=== PATIENT | male | born 1975 | race Two or more races ===

== ENCOUNTER → 2023-02-24 | Outpatient (CLI) | payer OTHER, MEDICARE ==
[2023-02-24 14:03] LABS: HCT 44.5 % (39.0-53.0); HGB 14.5 gm/dL (13.0-17.5); MCH 27.3 pg (25.0-35.0); MCHC 32.5 g/dL (31.0-37.0); MCV 83.8 fL (80.0-100.0); Mean Platelet Volume 9.1; Platelet Count 245 k/uL (150-450); RBC 5.31 m/uL (4.30-5.90); RDW 14.2 % (11.5-15.5); WBC 10.5 k/uL (3.8-10.6)
[2023-02-24 14:11] LABS: Partial Thromboplastin Time 27.2 sec (22.0-30.0); Prothrombin Time 11.1 sec (10.0-12.5)
[2023-02-24 14:29] LABS: ALT 51 U/L (4-49); AST 39 U/L (17-59); African American GFR (CKD) >90 (>60 ml/min/1.73 sqM); Albumin 4.1 g/dL (3.5-5.0); Alkaline Phosphatase 64 U/L (38-126); Anion Gap 10 mmol/L; Blood Urea Nitrogen 10 mg/dL (9-20); Calcium 9.3 mg/dL (8.4-10.2); Carbon Dioxide 28 mmol/L (22-30); Chloride 101 mmol/L (98-107); Glucose 98 mg/dL (74-99); Non-African American GFR(CKD) >90 (>60 ml/min/1.73 sqM); Potassium 4.6 mmol/L (3.5-5.1); Sodium 139 mmol/L (137-145); Total Bilirubin 0.4 mg/dL (0.2-1.3); Total Protein 7.7 g/dL (6.3-8.2)
== END | disposition home or self-care (01) ==
LOC: LABPAT 12:10
PROVIDERS: ATTEND Orthopaedic Surgery
DX: Z01.812 Encounter for preprocedural laboratory examination (principal); M17.11 Unilateral primary osteoarthritis, right knee; Z22.322 Carrier or suspected carrier of Methicillin resistant Staphylococcus aureus; I49.8 Other specified cardiac arrhythmias
CPT/HCPCS: 80053; 83036; 85027; 85610; 85730; 93005

== ENCOUNTER → 2023-02-26 | Outpatient (CLI) | payer OTHER, MEDICARE | END | disposition home or self-care (01) | LOC: LABPAT 11:16 | PROVIDERS: ATTEND Orthopaedic Surgery | DX: Z01.812 Encounter for preprocedural laboratory examination (principal); M17.11 Unilateral primary osteoarthritis, right knee; Z22.322 Carrier or suspected carrier of Methicillin resistant Staphylococcus aureus | CPT/HCPCS: 87070 ==

== ENCOUNTER → 2023-03-23 | Outpatient (CLI) | payer MEDICARE ==
--- NOTE | 2023-03-26 09:31 | CT ---
EXAMINATION TYPE: CT right knee - [facility] Protocol DATE OF EXAM: 03/23/2023 COMPARISON: HISTORY: pre op planning CT DLP: 1512 mGycm Automated exposure control for dose reduction was used. Contrast: None Technique: [facility] presurgical planning of the right knee. Images were obtained in the axial plane at 2 mm thick sections through the hip and ankle and 1 mm thick sections through the knee. Reconstructed i mages in the coronal and sagittal plane are reviewed. FINDINGS: Hip: There is narrowing of the right hip joint space. Selective joint space narrowing is present. No acute osseous abnormality of the hips is evident. Fecal bolus is noted at the rectum. Knee: There is prior ACL repair. Medial and lateral femoral condylar spurring is present. Medial tibi al plateau and smaller lateral tibial plateau spurring is present. There is narrowing of the lateral compartment joint space with loss of the medial compartment joint space. Mild patellofemoral joint sp peng narrowing is present. Ankle: No acute fracture is evident. Joint space appears preserved. IMPRESSION: 1. CT for [facility] knee presurgical planning.
== END | disposition home or self-care (01) ==
LOC: RADCTMAIN 12:22
PROVIDERS: ATTEND Orthopaedic Surgery
DX: Z01.818 Encounter for other preprocedural examination (principal); M17.11 Unilateral primary osteoarthritis, right knee

== ENCOUNTER → 2023-03-23 | Outpatient (CLI) | payer MEDICARE, OTHER ==
[2023-03-23 13:24] LABS: Partial Thromboplastin Time 25.7 sec (22.0-30.0); Prothrombin Time 11.1 sec (10.0-12.5)
[2023-03-23 15:53] LABS: HCT 44.1 % (39.6-50.0); MCH 26.5 pg (27.0-32.0); MCHC 31.7 g/dL (32.0-37.0); MCV 83.5 FL (80.0-97.0); NRBC Per 100 WBC 0 X 10*3/uL (0.00-0.01); Platelet Count 270 X 10*3/uL (140-440); RBC 5.28 X 10*6/uL (4.40-5.60)
[2023-03-23 17:48] LABS: ALT 56 U/L (10-49); AST 46 U/L (14-35); Albumin 4.1 g/dL (3.8-4.9); Albumin/Globulin Ratio 1.21 Ratio (1.60-3.17); Alkaline Phosphatase 58 U/L (41-126); Blood Urea Nitrogen 11.3 mg/dL (9.0-27.0); Calcium 9.8 mg/dL (8.7-10.3); Carbon Dioxide 28.2 mmol/L (21.6-31.8); Chloride 101 mmol/L (96-109); Globulin 3.4 g/dL (1.6-3.3); Glucose 97 mg/dL (70-110); Potassium 4.7 mmol/L (3.5-5.5); Sodium 139 mmol/L (135-145); Total Bilirubin 0.4 mg/dL (0.3-1.2); Total Protein 7.5 g/dL (6.2-8.2)
== END | disposition home or self-care (01) ==
LOC: LABPAT 11:57
PROVIDERS: ATTEND Orthopaedic Surgery
DX: Z01.812 Encounter for preprocedural laboratory examination (principal); Z22.322 Carrier or suspected carrier of Methicillin resistant Staphylococcus aureus; M17.11 Unilateral primary osteoarthritis, right knee; E11.9 Type 2 diabetes mellitus without complications
CPT/HCPCS: 36415; 80053; 83036; 85027; 85610; 85730; 87070

== ENCOUNTER 2023-04-07 06:50 | Day surgery (SDC) | payer MEDICARE, OTHER ==
[2023-02-25 09:31] VITALS: BMI 50.8
[~2023-04-07 06:50] MED LIST: ONDANSETRON 4 MG/2 ML VIAL IVP PRN; TRANEXAMIC 1,000 MG/100ML-NACL 1,000 MG in SALINE 1 100ML.BAG IV PRN; TRANEXAMIC 1,000 MG/100ML-NACL 1,000 MG in SALINE 1 100ML.BAG IVPB PRN
[2023-04-07] MEDS ORDERED: LIDOCAINE 1% (10MG/ML) FOR IV START INTRADERMA PRN (07:42)
[2023-04-07] MEDS ORDERED: TEMAZEPAM 15 MG CAP PO PRN (08:43)
[2023-04-07] MEDS ORDERED: NALOXONE 0.4 MG/ML 1 ML VIAL IV PRN (08:43)
[2023-04-07] MEDS ORDERED: NA PHOS,M-B/NA PHOS,DI-BA 133 ML ENEMA RECTAL PRN (08:43)
[2023-04-07] MEDS ORDERED: MAGNESIUM HYDROXIDE 2,400 MG/30 ML CUP PO PRN (08:43)
[2023-04-07] MEDS ORDERED: traMADol 50 MG TAB PO PRN (08:43)
[2023-04-07] MEDS ORDERED: bisacodyL 10 MG SUPP RECTAL PRN (08:43)
[2023-04-07] MEDS ORDERED: ONDANSETRON 4 MG/2 ML VIAL IVP PRN (08:43)
[2023-04-07] MEDS ORDERED: HYDROmorphone 0.5 MG/0.5 ML SYRINGE IVP PRN ×2 (08:43)
[2023-04-07] MEDS ORDERED: ACETAMINOPHEN TAB 325 MG TAB PO PRN (08:43)
[2023-04-07] MEDS: LACTATED RINGERS 1,000 ML IV SCH ×2 (08:46→16:24)
[2023-04-07] MEDS ORDERED: HYDROcodone/APAP 7.5-325MG 1 EACH TAB PO PRN (08:47)
[2023-04-07] MEDS: ACETAMINOPHEN TAB 500 MG TAB PO PRN (08:55)
[2023-04-07] MEDS: DOCUSATE 100 MG CAP PO PRN (08:56)
[2023-04-07] MEDS: oxyCODONE ER 10 MG TAB.ER.12H PO PRN (08:56)
[2023-04-07] MEDS: DEXAMETHASONE SOD PHOSPHATE 10 MG/ML 1 ML VIAL IV PRN (09:05)
[2023-04-07] MEDS: KETOROLAC 15 MG/ML 1 ML VIAL IVP PRN (09:05)
[2023-04-07] MEDS: FAMOTIDINE 20 MG/2 ML VIAL IVP PRN (09:05)
[2023-04-07 09:08] LABS: Glucose,Whole Blood 106 mg/dL (70-110)
[2023-04-07] MEDS: MIDAZOLAM 2 MG/2 ML VIAL IV PRN (09:11)
[2023-04-07] MEDS: ceFAZolin 3 GM in SODIUM CHLORIDE 0.9% 100 ML IVPB PRN (09:45)
[2023-04-07] MEDS ORDERED: TRANEXAMIC 1,000 MG/100ML-NACL PREMIX BAG ONE (09:45)
[2023-04-07] MEDS ORDERED: NEOSTIGMINE 1 MG/ML 10 ML VIAL ONE (09:45)
[2023-04-07] MEDS ORDERED: PROPOFOL 10 MG/ML 20 ML VIAL IV ONE (09:45)
[2023-04-07] MEDS ORDERED: ROCURONIUM 10 MG/ML (5 ML VIAL) IV ONE (09:45)
[2023-04-07] MEDS ORDERED: ROPIVACAINE 5 MG/ML 30 ML VIAL ONE (09:45)
[2023-04-07] MEDS ORDERED: LIDOCAINE 1% INJ 10MG/ML (20 ML MDV) ONE (09:45)
[2023-04-07] MEDS ORDERED: GLYCOPYRROLATE 0.2 MG/ML 2 ML VIAL ONE (09:45)
[2023-04-07] MEDS ORDERED: DEXAMETHASONE SOD PHOSPHATE 4 MG/ML 1 ML VIAL ONE (09:45)
[2023-04-07] MEDS ORDERED: fentaNYL (PF) 50 MCG/ML 2 ML AMP ONE (09:45)
[2023-04-07] MEDS ORDERED: MIDAZOLAM 2 MG/2 ML VIAL ONE (09:45)
[2023-04-07] MEDS ORDERED: SUCCINYLCHOLINE CHLORIDE 200 MG/10 ML VIAL IV ONE (09:45)
[2023-04-07] MEDS: ROPIVACAINE/EPI/CLONIDINE/KET 50 ML SYRINGE MISCELLANE PRN (10:23)
[2023-04-07] MEDS: LACTATED RINGERS 1,000 ML IV ONE ×2 (11:08→14:05)
[2023-04-07] MEDS: VANCOMYCIN 1,000 MG VIAL MISCELLANE ONE (11:53)
--- NOTE | 2023-04-07 12:47 | P.OP ---
Date of Procedure: 04/07/23 Preoperative Diagnosis: 1. Severe right knee osteoarthritis 2. Prior ACL reconstruction, right knee 3. BMI 51 Postoperative Diagnosis: Same Procedure(s) Performed: 1. Right total knee arthroplasty 2. Computer assisted musculoskeletal navigation using CT/MRI images Modifier 22 for increased procedural complexity: Justification: This operation required significantly more time, work, and procedural complexity than a standard primary or revision total joint arthroplasty. Specifically the prior traumatic changes and or surgical procedure left a significantly altered surgical field with resultant scar tissue, adhesions, and altered anatomy that r equired a longer and more difficult and complex surgical dissection. This patient required: Extensile exposure requiring meticulous and extensive debridement due to prior failed surgery and contractures Technically demanding removal of prior hardware Significantly prolonged operative time Increased BMI (51) and challenging body habitus All of the above result in a physically and mentally challenging operative procedure that in my professional opinion necessitates a 30% increase above standard the schedule Implants: 1. Alissa Triathlon CR Femur Size #7 2. [place] [employer] [place] Tibial Base Size #7 with a 12x50 stem 3. Alissa Triathlon CS poly Size #10 4. Alissa Triathlon all poly patella, Size #35 Anesthesia: PRABHJOT, regional Surgeon: Mynor Frederick Pipe Buffer #1: Justin Brothers Estimated Blood Loss (ml): 200 IV fluids (ml): 200 Pathology: none sent Condition: stable Disposition: PACU Indications for Procedure: The patient is a very pleasant 47-year-old male with a medical history significant for having a remote ACL tear treated with an ACL reconstruction. He went on to develop severe posttraumatic arthritis that failed nonsurgical treatment. The patient presented to see me and I initially recommended nonsurgical treatment with attempts at weight loss given his elevated BMI. The patient attempted weight loss but continued to have incapacitating knee pain due to his arthritis. The patient specifically requests proceeding with a total knee replacement. I was very obey with the patient about his elevated risk due to his weight. We discussed his elevated risk for infection, delayed wound healing and/or mechanical failure requiring revision. We discussed the ramifications of this up to and including a knee fusion and possibly even amputation. The patient understood and still requested proceeding with a total knee replacement. Since he is otherwise healthy and is unable to work due to hi s knee pain I agreed proceeding with a total knee replacement again acknowledging his elevated risk. An ample opportunity discuss and was made aware of the potential serious complications that are possible following the knee replacement. I met with the patient preoperatively in the office setting and discussed treatment of their symptomatic knee arthritis. They failed a long course of nonsurgical treatment and elected to proceed with an elective total knee replacement. I discussed the potential risks and complications at length and gave them ample time to ask questions. Risks discussed included: risks from anesthesia, superficial site surgical infection, acute and/or chronic periprosthetic joint infection, delayed wound healing, drainage, wound necrosis, instability, stiffness, stiffness requiring manipulation and/or revision surgery, damage to local blood vessels or nerves, aseptic loosening of the implants, extensor mechanism issues including disruption, patellar maltracking, avascular necrosis etc., continued or worsened knee pain, generalized dissatisfaction with surgical outcome, need for revision surgery, an inability to regain preinjury level of function, DVT, PE, other medical complications, and possibly loss of life or limb. The patient voiced their understanding that while these are the most common complications other less common complications are possible. They provided both their verbal and written consent to go forward with surgery. Operative Findings: Severe tricompartmental knee osteoarthritis. At the beginning of the procedure the metallic interference screw was removed since the Germán plan showed it would impinge on the tibial baseplate. Description of Procedure: The patient was identified in preoperative holding and the correct operative extremity was verified and marked with a marker. I reviewed the consent form with the patient at length. All of their questions were answered. The patient was given a block by anesthesia. They were then brought back to the operating room. They were transferred onto the operating room table where a general anesthetic, preoperative antibiotics, and tranexamic acid were administered by anesthesia. A tourniquet was applied to the proximal aspect of the operative extremity. The contralateral extremity was padded under the heel and secured to the operating room table with a nonsterile blue towel and tape. The ipsilateral arm was carefully draped across the patient's chest and secured with a pillow and foam. A post was applied over the lateral aspect of the ipsilateral thigh and a bolster was placed under the ipsilateral foot. I verified that the operative extremity was stable and the knee was flexed to 90. The operative extremity was then placed in a leg vines, nonsterile drapes were applied, and the extremity was prepped and draped sterilely in the standard sterile fashion. Prior to starting surgery timeout was performed identifying the correct patient, operative extremity, and procedure. The leg was then elevated, exsanguinated with an Esmarch bandage, and the tourniquet was inflated. An anterior midline incision was made sharply with a scalpel. Once I had dissected deep to the superficial fascial layer medial and lateral flaps were elevated. A medial parapatellar arthrotomy was created. Upon opening the knee joint there were diffuse arthritic changes in all 3 compartments. The patient's body habitus exposure and completion of the procedure was difficult. The anterior horn of the medial meniscus were sharply released and a medial release was performed around the posterior medial corner of the knee to facilitate retractor placement. At this point I found the interference screw in the tibia which was easily palpated. It was carefully exposed with a small amount of bone removed just enough to expose the screw. A dental pick was used to remove bone from within the screw and using an appropriately sized screwdriver the screw was removed. The fat pad was excised with electrocautery. The patella was found to be severely arthritic and a provisional cut was made with a sagittal saw to facilitate mobilization of the extensor mechanism during the procedure. Remnants of the ACL and PCL were then excised from the notch. 4 mm pins were then placed within the incision in the medial distal femur and proximal tibia. Arrays were applied to the pins and I verified they were completely tightened. The knee was then registered with the Sensbeat robot and manipulations in implant position were made to balance the knee and opitmize implant position. Using the Germán robotic saw all cuts were made in accordance with our plan. After all bony fragments had been removed the cuts were verified with the planar probe. The tibia was then subluxed forward and sized. The knee was brought into flexion and a lamina sugar sampler was placed to allow removal of the meniscal remnants both medially and laterally as well as posterior osteophytes. Local anesthetic was then infiltrated around the joint capsule. Trial implants were then placed within the knee. Range of motion and collateral ligament tension was then evaluated. Adjustments in implant size and position were then made accordingly. Once the knee was felt to be appropriately balanced the Germán pins were removed. The patella was then recut, sized, and punched. A trial patellar button was then placed. With the trial components in place, the patella tracked midline. The femur was then drilled and the trial component removed. The trial tibial co mponent was then appropriately rotated, pinned, and prepared for the keel. Wax was applied over the site of the interference screw. All trial components were then removed from the knee. The knee was thoroughly irrigated with pulsatile lavage. Cement was prepared via vacuum mixing in a bowl on the back table. I then hand pressurized cement into the femur and tibia and placed the implants beginning with the tibial base tray and poly liner, femoral component, and finally the patellar button. All extruded cement was removed including from the pin sites. Once the cement had hardened the knee was evaluated one final time with the final polyethylene liner in place. The knee had full extension and flexion and felt stable to varus and valgus stress throughout the arc of motion. The tourniquet was released and with the tourniquet down the patella tracked midline. All bleeders were controlled with electrocautery. The knee was then soaked for 3 minutes with a dilute Betadine soak. The knee was thoroughly irrigated using 3 L of sterile saline and pulsatile lavage. The extensor mechanism was then reapproximated using pop off Vicryl sutures followed by a running barbed suture. The knee was then closed in layers with a 0 strata fix for the deep fascial layer, 2-0 strata fix for the superficial subcutaneous layer and Monocryl and Steri-Strips for the skin. A sterile dressing was a pplied. I verified that all instrument, sponge, and sharp counts were correct. The patient was then transferred off the operating room table, extubated, and brought to recovery having tolerated the procedure well. Justin Brothers PA-C was required a skilled surgical assistant certified due to the complexity of the surgery for patient positioning, retraction, placement of implants, closure of wound, and application of dressing. PLAN: The patient can weight-bear as tolerated on the operative extremity. DVT prophylaxis with aspirin 81 mg twice a day based on preoperative risk stratification. The patient is going to attempt to leave as an outpatient. They can be discharged as long as they passed physical therapy and her pain is controlled. Follow-up in the office in 2 weeks for wound check and x-rays of the knee including an AP and lateral.
[2023-04-07] MEDS: HYDROmorphone 0.5 MG/0.5 ML SYRINGE IVP PRN (13:03)
--- NOTE | 2023-04-07 13:03 | XR ---
EXAMINATION TYPE: XR knee limited RT DATE OF EXAM: 04/07/2023 CLINICAL HISTORY: Postoperative evaluation Two views of the right knee are submitted. Identified are changes of total knee arthroplasty with femoral and tibial components appearing well seated. Postsurgical soft tissue changes are noted. Alignment is anatomic.
[2023-04-07 15:07] LABS: Glucose,Whole Blood 193 mg/dL (70-110)
[2023-04-07] MEDS: ONDANSETRON 4 MG/2 ML VIAL IVP ONE (16:23)
[2023-04-07] MEDS: DEXAMETHASONE SOD PHOSPHATE 4 MG/ML 1 ML VIAL IV ONE (16:23)
[2023-04-07] MEDS: HYDROmorphone 1 MG/ML 1 ML SYRINGE IVP PRN (16:53)
[2023-04-07 17:08] LABS: Glucose,Whole Blood 216 mg/dL (70-110)
[2023-04-07] MEDS ORDERED: ALBUTEROL NEBULIZED 2.5 MG/3 ML INHALATION PRN (17:19)
[2023-04-07] MEDS ORDERED: CYCLOBENZAPRINE 10 MG TAB PO PRN (17:19)
[2023-04-07] MEDS: ceFAZolin 3 GM in SODIUM CHLORIDE 0.9% 100 ML IVPB SCH (17:27)
[2023-04-07] MEDS: INSULIN ASPART (NovoLOG) 100 UNIT/ML VIAL SQ SCH (17:27)
--- NOTE | 2023-04-07 17:30 | P.CONS ---
History of Present Illness - Reason for Consult Consult date: 04/07/23 - Chief Complaint Medical management - History of Present Illness 47-year-old male with medical history of diabetes, obesity class III, hypertension, hyperlipidemia presented for evaluation of elective knee replacement of the right knee. Medicine was consulted for medical management. Patient's only complaint at this time is some tightness of his right knee/thigh, otherwise reports the pain is under good control. Patient denies fevers, chills, nausea, vomiting. Patient is now able to eat and has an appetite without nausea. Patient does feel like he can go to the bathroom to urinate. Patient's sugars are a bit high at 216. Upon evaluation, patient is afebrile, 122/79, heart rate 85, 96% on room air. Patient's blood sugars are elevated at 216, previous check was 193. Knee x-ray demonstrates postsurgical soft tissue changes with alignment that is anatomic. All Systems reviewed and pertinent positives and negatives noted in HPI, all other symptoms are negative Gen: In NAD, non-toxic HEENT: normocephalic, atraumatic, hearing acuity is intant, mucous membranes moist CVS: perfusing all extremities well, no pitting edema, Respiratory: symmetric chest expansion, no accessory muscle use, GI: soft, NTTP, ND, : no suprapubic tenderness, no CVA tenderness MSK/Derm: no rashes, cyanosis, swelling of the right thigh Neuro: CN II-XII intact, no motor weakness, Psych: cooperative, euthymic mood, judgment and insight is intact Labs and imaging as above Assessment/plan: Diabetes with hyperglycemia -Initiate sliding scale insulin, will hold his home oral diabetic medications including metformin and Trulicity Hypertension Hyperlipidemia Obesity class III -Resume home medications, outpatient weight loss referral is recommended as well as consideration of bariatric surgery Status post right knee arthroplasty -Pain control and DVT prophylaxis per primary team Patient is full code Past Medical History Past Medical History: Asthma, Diabetes Mellitus, Hypertension, Osteoarthritis (OA) Additional Past Medical History / Comment(s): Scoliosis. Clausterphobia, meningitis History of Any Multi-Drug Resistant Organisms: None Reported Past Surgical History: Adenoidectomy, Back Surgery, Bariatric Surgery, Orthopedic Surgery, Tonsillectomy Additional Past Surgical History / Comment(s): Lumbar fusion, nasal cauterization, gastric bypass, abdominoplasty, ACL repair right knee. Past Anesthesia/Blood Transfusion Reactions: No Reported Reaction Additional Past Anesthesia/Blood Transfusion Reaction / Comm: Clausterphobia. Past Psychological History: Anxiety, Depression Smoking Status: Never smoker Past Alcohol Use History: Rare Past Drug Use History: None Reported - Past Family History Father Family Medical History: COPD Additional Family Medical History / Comment(s): Ulcers, one kidney removed, cardiac stents. Mother Family Medical History: Asthma Additional Family Medical History / Comment(s): Diverticulitis. Medications and Allergies Home Medications Medication Instructions Recorded Confirmed Type Albuterol Inhaler [Ventolin Hfa 1 - 2 puff INHALATION QID PRN 02/25/23 04/07/23 History Inhaler] Celecoxib [Celebrex] 200 mg PO HS 02/25/23 04/07/23 History Citalopram Hydrobromide 20 mg PO HS 02/25/23 04/07/23 History [Citalopram HBr] Cyclobenzaprine [Flexeril] 10 mg PO BID PRN 02/25/23 04/07/23 History Dulaglutide [Trulicity] 4.5 mg SQ FR 02/25/23 04/07/23 History Melatonin [Melatonin ER] 10 mg PO HS 02/25/23 04/07/23 History Zolpidem [Ambien] 10 mg PO HS PRN 02/25/23 04/07/23 History hydrOXYzine HCL [Hydroxyzine HCl] 25 - 50 mg PO BID PRN 02/25/23 04/07/23 History lisinopriL [Zestril] 20 mg PO QAM 02/25/23 04/07/23 History metFORMIN HCL 500 mg PO BID 02/25/23 04/07/23 History traMADol HCL 50 - 100 mg PO BID PRN 02/25/23 04/07/23 History Aspirin [Adult Low Dose Aspirin EC] 81 mg PO BID #60 tab 04/07/23 Rx Docusate [Colace] 100 mg PO BID #60 capsule 04/07/23 Rx Ondansetron [Zofran] 4 mg PO Q8HR PRN #21 tab 04/07/23 Rx Allergies Allergy/AdvReac Type Severity Reaction Status Date / Time apples Allergy "Throat Uncoded 04/07/23 08:47 constricts" Physical Exam Osteopathic Statement: *. No significant issues noted on an osteopathic structural exam other than those noted in the History and Physical/Consult. Vitals: Vital Signs Temp Pulse Resp BP Pulse Ox 04/07/23 16:14 98.6 F 85 18 122/79 96 04/07/23 15:37 92 16 103/64 95 04/07/23 15:07 81 16 113/65 95 04/07/23 14:37 79 16 99/59 94 L 04/07/23 14:22 78 16 103/64 97 04/07/23 14:07 85 16 112/69 96 04/07/23 13:52 84 16 117/62 96 04/07/23 13:37 72 16 116/70 93 L 04/07/23 13:22 87 16 122/78 95 04/07/23 13:07 81 16 128/83 95 04/07/23 12:52 97 16 137/85 95 04/07/23 12:37 97 F L 91 16 138/86 91 L 04/07/23 09:24 75 18 13/87 98 04/07/23 08:57 96.8 F L 80 20 144/81 98 Intake and Output 04/07/23 04/07/23 04/07/23 06:59 14:59 22:59 Intake Total 2550 Output Total 200 Balance 2350 Intake: IV 2550 Output: Estimated Blood Loss 200 Other: Weight 175.5 kg 175.5 kg Results CBC & Chem 7: 02/24/23 12:26 02/24/23 12:26 Labs: Abnormal Lab Results - Last 24 Hours (Table) 04/07/23 04/07/23 Range/Units 15:05 17:06 POC Glucose (mg/dL) 193 H 216 H (70-110) mg/dL
--- NOTE | 2023-04-07 20:38 | P.ANPRN ---
Procedure Note - Anesthesia - Nerve Block Performed Right Adductor Canal Single Time Out Performed: Yes Date of Procedure: 04/07/23 Procedure Start Time: :10 Procedure Stop Time: 09:13 Location of Patient: PreOp Indication: Acute Post-Operative Pain, Requested by Surgeon Sedation Type: Sedate with meaningful contact maintained Preparation: Sterile Prep Position: Supine Needle Types: Pajunk Needle Gauge: 21 Ultrasound used to visualize needle placement: Yes Ultrasound used to observe medication spread: Yes Blood Aspirated: No Pain Paresthesia on Injection Noted: No Resistance on Injection: Normal Image Stored and Saved: Yes Events: Uneventful and Well Tolerated (Ropivacaine 0.5% 20 cc plus dexamethasone 4 mg)
--- NOTE | 2023-04-07 20:41 | P.ANPRN ---
Procedure Note - Anesthesia - Nerve Block Performed Right Watsonck Single Time Out Performed: Yes Date of Procedure: 04/07/23 Procedure Start Time: 09:14 Procedure Stop Time: 09:17 Location of Patient: PreOp Indication: Acute Post-Operative Pain, Requested by Surgeon Sedation Type: Sedate with meaningful contact maintained Preparation: Sterile Prep Position: Supine Needle Types: Pajunk Needle Gauge: 21 Ultrasound used to visualize needle placement: Yes Ultrasound used to observe medication spread: Yes Blood Aspirated: No Pain Paresthesia on Injection Noted: No Resistance on Injection: Normal Image Stored and Saved: Yes Events: Uneventful and Well Tolerated (Ropivacaine 0.5% 20 cc plus dexamethasone 4 mg)
[2023-04-07 21:01] LABS: Glucose,Whole Blood 230 mg/dL (70-110)
[2023-04-07] MEDS: CITALOPRAM HYDROBROMIDE 20 MG TAB PO SCH (21:46)
[2023-04-07] MEDS: ZOLPIDEM 5 MG TAB PO PRN (21:46)
[2023-04-07] MEDS: SENNOSIDES-DOCUSATE SODIUM 1 EACH TAB PO SCH (21:46)
[2023-04-07] MEDS: MELATONIN 5 MG TABLET PO SCH (21:46)
[2023-04-07] MEDS: HYDROcodone/APAP 7.5-325MG 1 EACH TAB PO PRN (21:46)
[2023-04-07] MEDS: ASPIRIN 81 MG PO SCH (21:46)
[2023-04-08 06:05] LABS: Glucose,Whole Blood 141 mg/dL (70-110)
--- NOTE | 2023-04-08 08:04 | P.DS ---
Providers Date of admission: 04/07/2023 Attending physician: Mynor Frederick Consults: 04/07/23 08:43 Consult Physician Routine Consulting Provider: Arik Cordova Consult Reason/Comments: post op medical management Do you want consulting provider notified?: Yes Primary care physician: Arik Cordova [facility] Course: The patient is a very pleasant 47-year-old male who was admitted yesterday and underwent an uncomplicated right total knee replacement. Following surgery he was transferred to the orthopedic floor. He received 2 doses of postoperative antibiotics. He was transitioned from IV to oral pain medication. He worked with physical therapy. Internal medicine saw him and managed his postoperative medical issues. He did well and was ultimately cleared for discharge. I saw him on postoperative day #1 and his dressing was intact with only a small area of strikethrough distally. His thigh and calf are soft. He was able to actively plantarflex nor specks his ankle and his toes. Plan - Discharge Summary Discharge Rx Participant: No New Discharge Prescriptions: New Aspirin [Adult Low Dose Aspirin EC] 81 mg PO BID #60 tab Doxycycline Monohydrate 100 mg PO BID #28 cap Omeprazole 40 mg PO DAILY #30 cap Docusate [Colace] 100 mg PO BID #60 capsule Ondansetron [Zofran] 4 mg PO Q8HR PRN #21 tab PRN Reason: Nausea HYDROcodone/APAP 5-325MG [[place] 5-325] 1 - 2 tab PO Q6HR PRN #32 tab PRN Reason: Pain No Action traMADol HCL 50 - 100 mg PO BID PRN PRN Reason: Pain metFORMIN HCL 500 mg PO BID hydrOXYzine HCL [Hydroxyzine HCl] 25 - 50 mg PO BID PRN PRN Reason: Anxiety Dulaglutide [Trulicity] 4.5 mg SQ FR Celecoxib [Celebrex] 200 mg PO HS lisinopriL [Zestril] 20 mg PO QAM Zolpidem [Ambien] 10 mg PO HS PRN PRN Reason: Insomnia Cyclobenzaprine [Flexeril] 10 mg PO BID PRN PRN Reason: Muscle Spasm Albuterol Inhaler [Ventolin Hfa Inhaler] 1 - 2 puff INHALATION QID PRN PRN Reason: Shortness Of Breath Citalopram Hydrobromide [Citalopram HBr] 20 mg PO HS Melatonin [Melatonin ER] 10 mg PO HS Discharge Medication List Albuterol Inhaler [Ventolin Hfa Inhaler] 1 - 2 puff INHALATION QID PRN 02/25/23 [History] Celecoxib [Celebrex] 200 mg PO HS 02/25/23 [History] Citalopram Hydrobromide [Citalopram HBr] 20 mg PO HS 02/25/23 [History] Cyclobenzaprine [Flexeril] 10 mg PO BID PRN 02/25/23 [History] Dulaglutide [Trulicity] 4.5 mg SQ FR 02/25/23 [History] Melatonin [Melatonin ER] 10 mg PO HS 02/25/23 [History] Zolpidem [Ambien] 10 mg PO HS PRN 02/25/23 [History] hydrOXYzine HCL [Hydroxyzine HCl] 25 - 50 mg PO BID PRN 02/25/23 [History] lisinopriL [Zestril] 20 mg PO QAM 02/25/23 [History] metFORMIN HCL 500 mg PO BID 02/25/23 [History] traMADol HCL 50 - 100 mg PO BID PRN 02/25/23 [History] Aspirin [Adult Low Dose Aspirin EC] 81 mg PO BID #60 tab 04/07/23 [Rx] Docusate [Colace] 100 mg PO BID #60 capsule 04/07/23 [Rx] Ondansetron [Zofran] 4 mg PO Q8HR PRN #21 tab 04/07/23 [Rx] Doxycycline Monohydrate 100 mg PO BID #28 cap 04/08/23 [Rx] HYDROcodone/APAP 5-325MG [[place] 5-325] 1 - 2 tab PO Q6HR PRN #32 tab 04/08/23 [Rx] Omeprazole 40 mg PO DAILY #30 cap 04/08/23 [Rx] Follow up Appointment(s)/Referral(s): [facility] [NON-STAFF] - As Needed Mynor Frederick MD [Medical Doctor] - 2 Weeks Activity/Diet/Wound Care/Special Instructions: 1. Weight-bear as tolerated on your operative extremity unless instructed otherwise. Use a walker or other assistive device to ambulate. 2. Leave surgical dressing in place. If your dressing becomes saturated with blood, there is drainage, or the dressing becomes loose please contact the office. 3. It is okay to shower with your surgical dressing, but do not submerge in water (no hot tubs, bath's, swimming etc.) 4. Make sure to take her blood clot prevention medication as prescribed (aspirin, Eliquis, Xarelto, and Plavix are commonly prescribed medications for blood clot prevention) 5. While taking [place] or Percocet for pain make sure you're taking a stool softener (Colace) and drink lots of water. 6. Keep all follow-up appointments as scheduled. You will usually be seen in 1-2 weeks following surgery. 7. Please contact the office with any questions or concerns [phone] Discharge Disposition: HOME WITH HOME HEALTH SERVICES
[2023-04-08] MEDS: lisinopriL 20 MG TAB PO SCH (08:08)
[2023-04-08 08:29] VITALS: BP 118/56; PULSE 81; RESP 18; TEMP 98.6
[2023-04-08] MEDS: diazePAM 5 MG TAB PO PRN (10:13)
[2023-04-08 10:42] LABS: Glucose,Whole Blood 224 mg/dL (70-110)
[2023-04-08 10:57] LABS: Basophils # (A) 0.02 X 10*3/uL (0.00-0.10); Basophils % (A) 0.1 %; Eosinophils # (A) 0 X 10*3/uL (0.04-0.35); Eosinophils % (A) 0 %; HCT 34.1 % (39.6-50.0); HGB 10.8 g/dL (13.0-17.0); Lymphocytes # (A) 1.63 X 10*3/uL (0.90-5.00); Lymphocytes % (A) 8.5 %; MCH 26.9 pg (27.0-32.0); MCHC 31.7 g/dL (32.0-37.0); Mean Platelet Volume 11.3 FL (9.5-12.2); Monocytes # (A) 1.41 X 10*3/uL (0.20-1.00); Monocytes % (A) 7.4 %; NRBC Per 100 WBC 0 X 10*3/uL (0.00-0.01); Neutrophils # (A) 15.92 X 10*3/uL (1.80-7.70); Neutrophils % (A) 83.3 %; Platelet Count 250 X 10*3/uL (140-440); RBC 4.01 X 10*6/uL (4.40-5.60); RDW 14.6 % (11.5-14.5); WBC 19.12 X 10*3/uL (4.50-10.00)
[2023-04-08] MEDS: MULTIVITAMINS, THERA 1 EACH TAB PO SCH (11:56)
== END 2023-04-08 12:59 | disposition home health service (06) ==
LOC: OR 06:50 → 4SSUR 12:30 → OR 04-08 12:59
PROVIDERS: ATTEND Orthopaedic Surgery
DX: M17.11 Unilateral primary osteoarthritis, right knee (principal); G89.18 Other acute postprocedural pain; E11.65 Type 2 diabetes mellitus with hyperglycemia; I10 Essential (primary) hypertension; F32.A Depression, unspecified; E78.5 Hyperlipidemia, unspecified; E66.01 Morbid (severe) obesity due to excess calories; J45.909 Unspecified asthma, uncomplicated; Z98.84 Bariatric surgery status; Z90.49 Acquired absence of other specified parts of digestive tract; Z98.890 Other specified postprocedural states; F41.9 Anxiety disorder, unspecified; Z68.43 Body mass index [BMI] 50.0-59.9, adult; Z79.84 Long term (current) use of oral hypoglycemic drugs; Z79.82 Long term (current) use of aspirin; Z79.899 Other long term (current) drug therapy
CPT/HCPCS: 0055T; 27447; 64447; 64999; 80053; 83036; 85025; 85027; 85610; 85730; 87070; 93005